=== PATIENT | male | born 1950 | race African-American/Black ===

== ENCOUNTER 2016-10-01 01:42 | Emergency (ER) | payer MEDICAID ==
[~2016-10-01] VITALS: Ht 185.4 cm; Wt 100.7 kg
[~2016-10-01 01:42] MED LIST: GLIP-115; HYDR-1421; LISI-646; METF-372
[2016-10-01 01:55] VITALS: BP 177/112
[2016-10-01] MEDS ORDERED: cloNIDine 0.2 mg/24hr 7DAY PATCH TD ONE (04:15)
[2016-10-01] MEDS ORDERED: NEOMYCIN-BACITRACIN-POLYM UNITDOSE PKG TOP OINT TOP ONE (04:15)
[2016-10-01] MEDS ORDERED: cloNIDine HCL 0.1 MG TAB ONE (04:31)
[2016-10-01] MEDS ORDERED: cloNIDine HCL 0.1 MG TAB PO ONE (05:00)
== END 2016-10-01 05:37 | disposition home or self-care (01) ==
LOC: ER 01:51
DX: S80.262A Insect bite (nonvenomous), left knee, initial encounter (principal); L03.116 Cellulitis of left lower limb; E11.9 Type 2 diabetes mellitus without complications; I10 Essential (primary) hypertension; E78.5 Hyperlipidemia, unspecified; Z87.891 Personal history of nicotine dependence; W57.XXXA Bitten or stung by nonvenomous insect and other nonvenomous arthropods, initial encounter; Y93.89 Activity, other specified; Y99.8 Other external cause status; Y92.89 Other specified places as the place of occurrence of the external cause